=== PATIENT | male | born 1940 | race Caucasian/White ===

== ENCOUNTER 2016-10-04 08:12 | Day surgery (SDC) | payer MEDICARE, OTHER ==
[~2016-10-04] VITALS: Ht 188 cm; Wt 84.2 kg
[2016-10-15] MEDS ORDERED: TENORMIN DPS50 MG PO (15:03)
[2016-10-15] MEDS ORDERED: PRESERVISION A1 EACH PO (15:04)
[2016-10-15] MEDS ORDERED: LOPID DPS600 MG PO (15:04)
[2016-10-15] MEDS ORDERED: CARDURA4 MG PO (15:04)
[2016-10-15] MEDS ORDERED: ELIQUIS5 MG PO (15:04)
[2016-10-15] MEDS ORDERED: LANOXIN DPS0.125 MG PO (15:05)
[2016-10-15] MEDS ORDERED: LIPITOR DPS20 MG PO (15:05)
[2016-10-15] MEDS ORDERED: KLOR-CON M2020 ME1 PO (15:05)
[2016-10-15] MEDS ORDERED: NICOTINE PATCH1 EAC1 TD (15:06)
[2016-10-15] MEDS ORDERED: PEPCID DPS20 MG PO (15:06)
[2016-10-15] MEDS ORDERED: AUGMENTIN 875-1 EACH PO (15:07)
[2016-10-15] MEDS ORDERED: SPIRIVA18 MCG IH (15:07)
--- NOTE | 2016-10-23 08:57 | OR ---
ADMIT: 10/04/2016 RM/LOC: [facility] MR#: [id number] [id number] [address] JACQUE SUAREZ [address] [place] [address] Operative/Delivery Room Report SEX: M AGE: 76 : 1940 SURGERY DATE: 10/04/2016 SURGEON: Davion Moya MD PREPROCEDURE DIAGNOSIS: Tongue cancer. POSTPROCEDURE DIAGNOSIS: Tongue cancer. PROCEDURES: 1. Right subclavian vein PowerPort placement with fluoroscopy. 2. EGD with PEG tube placement. INDICATIONS: The patient is a 76-year-old with a squamous cell tongue cancer preparing for adjuvant chemoradiation therapy who presents for PowerPort placement, EGD and PEG. FINDINGS: The patient was taken the operating room. IV sedation was given. The chest and neck were prepped and draped in normal sterile fashion. A 1% lidocaine was used for local analgesia. An introducer needle was placed in the right subclavian vein. A wire was threaded under fluoroscopic guidance into the right ventricle. An Fqticj-F-Shmo pocket was made with a #15 blade cautery and blunt finger dissection. A dilator and sheath were placed over our wire. Our catheter was cut to 15 cm and assembled. Our catheter was then threaded through our sheath under fluoroscopic guidance with the tip in the right atrium. The catheter aspirated and flushed without difficulty. Then was flushed with heparinized saline. The port was sutured to the pectoral fascia using 2-0 Prolene suture. The wound was closed with interrupted 3-0 Vicryl subdermal suture and a running 4-0 Vicryl subcuticular skin stitch. The wound was cleaned, dried, and dressed. We then placed the gastroscope down the oropharynx, down the esophagus, into the stomach through the pylorus into a normal duodenum and nonobstructive pylorus. We insufflated the stomach and with palpation and transillumination, we found a safe area in the left subcostal region. We prepped with Betadine, injected 1% lidocaine. I made a 0.5 cm transverse skin incision using #11 blade. An Angiocath was placed within the stomach, wire was threaded through our Angiocath, grasped with the wire loop and brought out through the mouth. We threaded our PEG tube over ADMIT: 10/04/2016 RM/LOC: [facility] MR#: [id number] [id number] [address] JACQUE SUAREZ [address] [place] [address] Operative/Delivery Room Report SEX: M AGE: 76 : 1940 the top of our wire and then on the original set as I tried to pull the wire out through the abdominal wall, the wire split and frayed and broke. So, I had to remove the whole apparatus and then get a new apparatus and place a new Angiocath into the same area of the stomach. We put a wire through the Angiocath, grasped with the wire loop and brought it out through the mouth. Again, threaded another PEG tube over our wire. I was able to bring the wire and the PEG tube out through the anterior abdominal wall with skin markings at about 3 cm. Circular flange was placed over the G-tube, the G-tube was assembled. Our gastroscope was replaced down the oropharynx, down the esophagus, into the stomach showing the G-tube in good position. The patient tolerated the procedure without difficulty, transferred to recovery room in good condition. Davion Moya MD/ betty JOB #: [id number] CC: Davion Moya, Attending Physician Geovanny Dan, Family Physician
== END 2016-10-04 13:35 | disposition home or self-care (01) ==
LOC: SSS 08:12
PROC: 0DH63UZ Insertion of Feeding Device into Stomach, Percutaneous Approach (ICD-10-PCS; principal; 2016-10-04)
PROC: 05H533Z Insertion of Infusion Device into Right Subclavian Vein, Percutaneous Approach (ICD-10-PCS; principal; 2016-10-04)
DX: C02.9 Malignant neoplasm of tongue, unspecified (principal); I25.2 Old myocardial infarction; I10 Essential (primary) hypertension; F17.200 Nicotine dependence, unspecified, uncomplicated; E78.5 Hyperlipidemia, unspecified; Z98.890 Other specified postprocedural states; Z98.49 Cataract extraction status, unspecified eye; Z79.899 Other long term (current) drug therapy; Z90.49 Acquired absence of other specified parts of digestive tract

== ENCOUNTER 2016-10-10 14:37 | Inpatient (IN) | payer MEDICARE, OTHER ==
[~2016-10-10] VITALS: Ht 184.2 cm; Wt 88.9 kg
--- NOTE | ~2016-10-10 | ECH ---
Transthoracic Echocardiography Report (TTE) Demographics Patient Name JACQUE SUAREZ Date of Study 10/11/2016 Patient Number [id number] Visit Number [id number] Date of 1940 Room Number 415 Accession Number [id number] Gender Male Age 76 year(s) Referring Tahira Choi Occupational Therapist [employer]ist[employer] Alicia Burgess [facility] Physician Physician Interpreting Mike Carlos Souvenir Assembler Physician Supervising Ordering Physician Tahira Choi MD, MD/MLP Nurse Stress Cna Ltc Conclusions Contractility Score Summary Normal Left Ventricular contractility was noted. Summary Study performed supine due to patient refusing to turn on side. Technically adequate exam. The estimated left ventricular ejection fraction is 60-65%. The left ventricle is moderately dilated . The left atrium is moderately dilated by LA volume index measurement. The right atrium is mildly dilated. Trivial tricuspid regurgitation by color Doppler. There is mild pulmonary hypertension. The pulmonary pressure (RVSP) is 42 mmHg. Recommendation The patient will be given the results of this study by the physician who ordered the exam. Procedure Type of Study TTE procedure:Echo Complete SF. Procedure Date Date: 10/11/2016 Start: 03:33 Technical Quality: Adequate visualization Indications:Atrial fibrillation, Hypertension and Hypotension. Appropriate Use Criteria: 9 Height: 72 inches Weight: 192 pounds BSA: 2.09 m Rhythm: NSR HR: 90 bpm BP: 151/44 mmHg M-Mode/2D Measurements LV Diastolic Dimension: 6.6 cm LV Systolic Dimension: 4.33 cm LV Septum Diastolic: 0.82 cm LV PW Diastolic: 0.89 cm AO Root Dimension: 3.53 cm Cardiac Output: 9.38 l/min LA Dimension: 3.64 cm Cardiac Index: 4.49 l/min*m RV Diastolic Dimension: 3.45 cm LA volume index: 42 ml/m LVOT: 2.31 cm LVOT VTI: 24.87 cm RV Base: 3.9 cm LV Stroke volume: 104.18 ml RV Mid: 2.2 cm LV Stroke volume index: 49.85 ml/m TAPSE: 2.8 cm TDI-S': 18 cm/s Doppler Measurements AV Peak Velocity: 2.2 m/s MV Peak E-Wave: 0.52 m/s AV Peak Gradient: 19.36 mmHg MV Peak A-Wave: 1 m/s AV Mean Gradient: 10.33 mmHg MV E/A Ratio: 0.52 LVOT Peak Velocity: 1.3 m/s MV P1/2t: 48.5 msec AV Area (Continuity):2.74 cm MV Deceleration Time: 99.5 msec TR Velocity:3.11 m/s MV Area (PHT): 4.54 cm TR Gradient:38.75 mmHg PV Peak Velocity: 0.97 m/s Estimated RAP:3 mmHg PV Peak Gradient: 3.79 mmHg Estimated RVSP: 42 mmHg Estimated PASP: 41.75 mmHg E' Septal Velocity: 0.1 m/s A' Septal Velocity: 0.1 m/s E' Lateral Velocity: 0.13 m/s A' Lateral Velocity: 0.1 m/s RA Area: 21.62 cm Findings Left Ventricle The left ventricle is moderately dilated . Diastolic assessment reveals normal relaxation. Right Ventricle Normal right ventricle structure and function. Left Atrium The left atrium is moderately dilated by LA volume index measurement. Right Atrium The right atrium is mildly dilated. Mitral Valve Mild to moderate mitral annular calcification. Trivial mitral regurgitation by color Doppler. Aortic Valve The aortic valve is moderately sclerotic. Tricuspid Valve Normal tricuspid valve structure and function. Trivial tricuspid regurgitation by color Doppler. There is mild pulmonary hypertension. The pulmonary pressure (RVSP) is 42 mmHg. Pulmonic Valve Normal pulmonic valve structure and function. Pericardial Effusion No evidence of pericardial effusion. Miscellaneous Visualized portions of the aortic root and ascending aorta appear normal in size. Pleural Effusion No evidence of pleural effusion. Contractility Score LV regional wall motion:(0-Non visualized 1-Normal 2-Hypokinesis 3-Akinesis 4-Dyskinesis 5-Aneurysm) Signature
--- NOTE | 2016-10-13 16:58 | CO ---
ADMIT: 10/10/2016 RM/LOC: 316 [facility] MR#: [id number] [id number] [address] JACQUE SUAREZ [address] [place] [address] Consultation SEX: M AGE: 76 : 1940 DATE OF CONSULTATION: 10/10/2016 ATTENDING PHYSICIAN: Davion Moya CONSULTING PHYSICIAN: Zackary Hoffmann MD REASON FOR CONSULTATION: Atrial fibrillation with RVR and low blood pressure. HISTORY OF PRESENT ILLNESS: This is a 76-year-old gentleman, admitted after he was found to have his PEG tube dislodged. He was ultimately found to have the tube feedings going intraperitoneally. He also had some nausea, abdominal pain, and some associated diarrhea. He was admitted, placed on IV antibiotics with Unasyn and was set up for PEG tube replacement tomorrow. Initially, pressures were a little low. He was given some fluid boluses, atenolol was held, and he was set up for his procedure tomorrow. Unfortunately, on routine checks, he was found to have a high heart rate triggered by his end-tidal CO2 monitor. EKG revealed atrial fibrillation with RVR. The patient, at the current time, is denying any chest pain, shortness of breath, or palpitations. He is having some abdominal pain which is not new from earlier. He reports he has about three different kinds of nausea but is not severe at the current time. He is having a difficult time getting comfortable. Other than that, he says he is overall unchanged from earlier and feels okay. PAST MEDICAL HISTORY: Includes hypertension, hyperlipidemia, squamous cell cancer of the tongue. PAST SURGICAL HISTORY: He has had cataract surgery, tonsillectomy. He has had vasectomy, appendectomy, and hernia repair. ALLERGIES: HE HAS NO ALLERGIES. MEDICATIONS: Per the current medication list. FAMILY HISTORY: Noncontributory but reviewed. SOCIAL HISTORY: He is a current smoker. Some alcohol use. He lives in [place]. REVIEW OF SYSTEMS: Other complete review of systems are reviewed but negative except as above. PHYSICAL EXAMINATION: VITAL SIGNS: Blood pressures are 80s to 100s over 50s to 60s. Heart rates are 130s to 150s right now. Last temp is 98.3. Respirations 16. Oxygen saturation 96% on 1 L oxygen by nasal cannula. GENERAL: This is a well-appearing 76-year-old gentleman. He is in no apparent distress. He is alert. He is oriented. HEENT: Pupils are equal, round, and reactive to light and accommodation. Extraocular muscles are intact. Throat is clear. NECK: Supple. Trachea is midline. Thyroid not palpable. ADMIT: 10/10/2016 RM/LOC: 316 [facility] MR#: [id number] [address] JACQUE SUAREZ [address] [place] [address] Consultation SEX: M AGE: 76 : 1940 HEART: Tachycardic and irregular. LUNGS: Diminished bilaterally. Few inspiratory rhonchi. He has some diffuse abdominal tenderness. His PEG tube wound is dressed. EXTREMITIES: Lower extremities have no edema. NEUROLOGIC: His cranial nerves are intact. He can move all extremities equally bilaterally. Pulses are tachycardic and regular, bilateral upper extremities. LABORATORY DATA: Last white count from 10/05 was 12.9, hemoglobin of 12.7, platelets of 309. BMP; sodium 128, potassium 3.2, and chloride 91, carbon dioxide is 28, BUN 26, creatinine 1.4. ASSESSMENT: 1. Atrial fibrillation with rapid ventricular response. 2. Hypotension. 3. Peritonitis. 4. G-tube malfunction. 5. Squamous cell cancer of the tongue. 6. Hyponatremia. 7. Hypokalemia. PLAN: We will check his labs again including thyroid, procalcitonin, magnesium, electrolytes, liver tests again. Also, check cardiac enzymes and his EKG. We will try to slow him down with a little metoprolol. He has already gotten a bolus of fluid. Hopefully, this will keep his blood pressure up for now and we will likely have to transfer him down to the ICU. Thank you very much for this consult. Zackary Hoffmann MD/ betty JOB #: [id number] CC: Davion Moya, Attending Physician Wilbert Bills, Family Physician
[2016-10-15] MEDS ORDERED: TENORMIN DPS50 MG PO (15:03)
[2016-10-15] MEDS ORDERED: PRESERVISION A1 EACH PO (15:04)
[2016-10-15] MEDS ORDERED: ELIQUIS5 MG PO (15:04)
[2016-10-15] MEDS ORDERED: CARDURA4 MG PO (15:04)
[2016-10-15] MEDS ORDERED: LOPID DPS600 MG PO (15:04)
[2016-10-15] MEDS ORDERED: LANOXIN DPS0.125 MG PO (15:05)
[2016-10-15] MEDS ORDERED: KLOR-CON M2020 ME1 PO (15:05)
[2016-10-15] MEDS ORDERED: LIPITOR DPS20 MG PO (15:05)
[2016-10-15] MEDS ORDERED: PEPCID DPS20 MG PO (15:06)
[2016-10-15] MEDS ORDERED: NICOTINE PATCH1 EAC1 TD (15:06)
[2016-10-15] MEDS ORDERED: AUGMENTIN 875-1 EACH PO (15:07)
[2016-10-15] MEDS ORDERED: SPIRIVA18 MCG IH (15:07)
--- NOTE | 2016-10-23 08:58 | HP ---
ADMIT: 10/10/2016 RM/LOC: 421 [facility] MR#: [id number] [id number] [address] PAPA SUAREZ [address] [place] [address] History and Physical SEX: M AGE: 76 : 1940 DATE OF SERVICE: 10/10/2016 CHIEF COMPLAINT: Abdominal pain. HISTORY OF PRESENT ILLNESS: Papa is a very pleasant 76-year-old male, with a recent diagnosis of squamous cell carcinoma of the tongue who has undergone EGD with PEG tube placement on 09/27/2016. He has also started radiation treatments daily. Approximately 1-2 days later status post EGD, the patient noticed increasing abdominal pain at the G-tube site. This also occurs during flushes and feedings. Then approximately 2-3 days ago, the patient was disassembling a flag pole where it came out of the socket fairly aggressively and hit G-tube site causing additional pain. As a result, the patient has also been nauseous and has been having loose stools. He denies any fevers or night sweats, but he has been having chills while he was here in the hospital undergoing a tube check. He further denies any dark or bloody stools or emesis. PAST MEDICAL HISTORY: Significant for hypertension, hyperlipidemia, squamous cell carcinoma of the tongue. PAST SURGICAL HISTORY: Cataract surgery, tonsillectomy, vasectomy, appendectomy, and I believe inguinal hernia repair. ALLERGIES: NO KNOWN DRUG ALLERGIES. MEDICATIONS: Pending. FAMILY HISTORY: Noncontributory. SOCIAL HISTORY: The patient is a tobacco and alcohol user. REVIEW OF SYSTEMS: CONSTITUTIONAL: The patient denies any fever or night sweats, but had chills earlier today. The rest of comprehensive 10-point review of systems was performed and all other systems are negative. PHYSICAL EXAMINATION: GENERAL: The patient is in no acute distress. He is alert and oriented. HEENT: Head is normocephalic and atraumatic. EOMS are intact. Conjunctivae free of icterus, erythema, or pallor. Pinnae, free of deformities. Nose, midline. No tracheal deviation. NECK: Supple. SKIN: Negative for jaundice, clubbing, edema, pallor, or cyanosis. ADMIT: 10/10/2016 RM/LOC: 421 [facility] MR#: [id number] [id number] [address] CYNDYPRIYANKAPAPA BIRD [address] [place] [address] History and Physical SEX: M AGE: 76 : 1940 LUNGS: Normal respiratory effort. HEART: Distal pulses intact. Regular rate and rhythm. ABDOMEN: Mildly distended. Tender and rigid. Pain at G-tube site with some yellow discharge from the incision and tube itself. Dressing in place. NEURO: Grossly intact. ASSESSMENT: Migrated G-tube, confirmed by fluoroscopy. PLAN: So far, the patient has been admitted per Dr. Moya and has been started on IV antibiotics. Pressures are little low when he was admitted, so I am going to bolus him, hold his atenolol, and check some lab work in the morning. We will proceed with the EGD and see how it goes tomorrow. JAMEE Rivera / Davion Moya MD / betty JOB #: [id number] CC: Davion Moya, Attending Physician Wilbert Bills, Family Physician
--- NOTE | 2016-10-23 08:58 | OR ---
ADMIT: 10/10/2016 RM/LOC: 316 [facility] MR#: [id number] [address] [address] JACQUE SUAREZ [address] [place] [address] Operative/Delivery Room Report SEX: M AGE: 76 : 1940 SURGERY DATE: 10/11/2016 SURGEON: Davion Moya MD PRE-PROCEDURE DIAGNOSIS: Migrated G-tube. POSTPROCEDURE DIAGNOSIS: Migrated G-tube. PROCEDURE: EGD with removal of migrated G-tube with replacement of percutaneous endoscopic gastrostomy tube. INDICATIONS: The patient is a 76-year-old, who had a recently placed G-tube somehow it has migrated and is now no longer in the gastric lumen after preoperative study with contrast. He presents for G-tube removal and replacement. FINDINGS: The patient was taken to the endoscopy suite. IV sedation was given. He was placed in supine position. The gastroscope introduced down the oropharynx, down the esophagus, into the stomach where there was an ulcerated area where the previous G-tube was in place. I attempted to place a wire through the G-tube. He had an obstruction at the end of the G-tube and did not enter into the stomach, so that I just simply removed the G-tube. Through the same percutaneous incision site, placed an Angiocath adjacent to the ulcerated area in the stomach, put a wire through the Angiocath, grasped it with a wire loop and brought out through the mouth, threaded a new G-tube over the top of this wire. Skin markings were about 7 cm at the skin. Assembled the tube, replaced the gastroscope showing again the G-tube in good position under no tension. The ulcerated area was adjacent to this site. I desufflated the stomach and removed the gastroscope. The patient will be followed carefully on antibiotics observation pending his clinical course. May need a CT scan. Hopeful removal of the tube with decompression with a new G-tube antibiotics, we will alleviate the issue, but we will see how the patient does clinically. Davion Moya MD/ betty JOB #: [id number] CC: Davion Moya, Attending Physician Wilbert Bills, Family Physician
--- NOTE | 2016-11-23 11:41 | DS ---
ADMIT: 10/10/2016 RM/LOC: 415 [facility] MR#: [id number] [address] [address] JACQUE SUAREZ [address] [place] [address] Discharge Summary SEX: M AGE: 76 : 1940 ADMISSION DATE: 10/10/2016 DISCHARGE DATE: 10/14/2016 ADMITTING DIAGNOSIS: Migrated G-tube. DISMISSAL DIAGNOSES: 1. Migrated G-tube. 2. Hypertension. 3. Hyperlipidemia. 4. Squamous cell carcinoma of the tongue. 5. Cataract surgery. 6. Tonsillectomy. 7. Vasectomy. 8. Appendectomy. 9. Inguinal hernia repair. PROCEDURES: EGD with removal of migrated G-tube and replacement of percutaneous endoscopic gastrostomy tube. HOSPITAL COURSE: The patient was admitted straight from clinic and admitted as an inpatient. He was given a morphine NETWORK SECURITY ENGINEER pump for pain control. There were concerns for peritonitis and so the patient was started on IV Unasyn. Prior to his procedure, the patient's heart rate went up to the 130-150 range an EKG noted atrial fibrillation. He was also hypotensive so the patient transferred to the ICU and SAMPSON was consulted. He was also given a couple normal saline boluses. While in ICU, the patient was started on Levophed drip. On 10/11, the patient underwent exchange of his G-tube. He tolerated this well. He then transferred out of the ICU and changed to PCU status. He continued to be tachycardic so he was stopped off his Levophed drip and was started on Cardizem drip. The patient was weaned off his NETWORK SECURITY ENGINEER and was tolerating oral pain medications. On postop day number two, the patient went into normal sinus rhythm. The remainder of his vitals were normal. He continued to recover well, tolerated advanced diet and had normal bowel function. He was able to discharge to home on 10/14/2016. DISCHARGE INSTRUCTIONS: 1. Follow up with Dr. Moya on Sunday in [place]. 2. Follow up with primary doctor in [place]. ADMIT: 10/10/2016 RM/LOC: 415 [facility] MR#: [id number] [id number] [address] DANIELA JACQUE Anderson [address] [place] [address] Discharge Summary SEX: M AGE: 76 : 1940 DISCHARGE MEDICATIONS: 1. Eliquis 5 mg b.i.d. 2. Klor-Con 20 mEq two tabs daily. 3. Lanoxin 0.125 mg at 1300 hours. 4. Lipitor 20 mg as directed. 5. Pepcid 20 mg daily. 6. Habitrol 21 mg patch daily. 7. Atenolol 50 mg b.i.d. 8. Doxazosin 4 mg daily. 9. Gemfibrozil 600 mg b.i.d. 10.PreserVision b.i.d. JAMEE Rivera / Davion Moya MD / vdg JOB #: [id number] CC: Davion Moya MD, Attending Physician Wilbert Bills MD, Family Physician
== END 2016-10-14 12:40 | disposition home or self-care (01) | DRG 326 ==
LOC: RAD.S 14:37 → 4PCU 17:05 → 3ICU 17:05 → 4PCU 10-11 16:02
PROVIDERS: ADMIT Surgery
PROC: 0DH63UZ Insertion of Feeding Device into Stomach, Percutaneous Approach (ICD-10-PCS; principal; 2016-10-11)
PROC: 0DP63UZ Removal of Feeding Device from Stomach, Percutaneous Approach (ICD-10-PCS; principal; 2016-10-11)
DX: K94.29 Other complications of gastrostomy (principal); A41.9 Sepsis, unspecified organism; R65.21 Severe sepsis with septic shock; K65.9 Peritonitis, unspecified; C02.9 Malignant neoplasm of tongue, unspecified; I48.91 Unspecified atrial fibrillation; E87.1 Hypo-osmolality and hyponatremia; I10 Essential (primary) hypertension; E78.5 Hyperlipidemia, unspecified; F17.200 Nicotine dependence, unspecified, uncomplicated; E87.6 Hypokalemia; E83.42 Hypomagnesemia

== ENCOUNTER → 2016-11-02 | Outpatient (CLI) | payer MEDICARE, OTHER ==
[~2016-11-02] MED LIST: AUGMENTIN 875-1 EACH PO; CARDURA4 MG PO; ELIQUIS5 MG PO; KLOR-CON M2020 ME1 PO; LANOXIN DPS0.125 MG PO; LIPITOR DPS20 MG PO; LOPID DPS600 MG PO; NICOTINE PATCH1 EAC1 TD; PEPCID DPS20 MG PO; PRESERVISION A1 EACH PO; SPIRIVA18 MCG IH; TENORMIN DPS50 MG PO
== END | disposition home or self-care (01) ==
LOC: RAD.S 10:06
DX: T85.848A Pain due to other internal prosthetic devices, implants and grafts, initial encounter (principal)